=== PATIENT | female | born 1990 | race African-American/Black ===

== ENCOUNTER 2017-03-30 08:42 | Emergency (ER) | payer OTHER ==
[2017-03-30 08:47] VITALS: BP 134/84; BMI 44.4
--- NOTE | 2017-03-30 09:03 | DR.GENAD ---
HPI - PCP Primary Care Physician: nfd - HPI Comment HPI Comment: GETTING WORSE. NO FEVER. COUGH SPRODUCTIVE.CONGESTION AND HEADACHE ALSO. - Complaint/Symptoms Chief Complaint Doctors Comments: COUGH, CHEST PAIN TIMES 2 DAYS. Chief Complaint:: pt stated when she coughs her chest hurts - Nurses notes reviewed Nurses Notes Review: Yes - Source History Provided: Patient - Mode of Arrival Mode of Arrival: Ambulatory - Timing Onset of Chief Complaint: 03/28/17 Came on: Suddenly - Duration Duration: Constant Duration: Days - Severity Severity: Moderate PMH - PMH Past Medical History: No Past Medical History: Asthma Past Surgical History: No - Family History History of Family Medical Conditions: No Family Medical History: Diabetes Mellitus, [place] - Social History Does patient currently use any type of tobacco product: Yes Have you used tobacco products in the last 12 months: Yes Type of Tobacco Use: Cigarettes How many years tobacco product used: 15 Does any household member use tobacco: Yes Alcohol Use: Rarely Do you use any recreational Drugs:: No Lives With: Family Lives Where: Home - infectious screening In the last 2 months have you had wt loss of >10#?: NO Have you had fever, night sweats or hemotysis?: No Have you traveled outside the country in the last 6 months?: No Isolation: Standard ROS - Review of Systems Constitutional: Weakness, Fatigue. negative: Chills, Fever Eyes: negative: Eye Pain, Discharge ENTM: Nose Discharge, Nose Congestion, Throat Pain. negative: Ear Pain Respiratoy: Productive Cough, Short of Breath. negative: Wheezing, Hemoptysis Cardiovascular: Chest Pain Gastrointestinal/Abdominal: No Symptoms Reported Genitourinary: No Symptoms Reported Neurological: Headache, Weakness, Dizziness Musculoskeletal: Muscle Pain Integumentary: No Symptoms Reported Hematologic/Lymphatic: No Symptoms Reported Endocrine: No Symptoms Reported All Other Systems: Reviewed and Negative PE - Vital Signs Vitals: Temperature 98.7 F Pulse Rate 87 Respiratory Rate 16 Blood Pressure [Right Arm] 105/81 Blood Pressure 134/84 O2 Sat by Pulse Oximetry 99 - General Limitations: No Limitations General Appearance: Alert - Head Head Exam: Normal Inspection - Eyes Eye exam: Normal Appearance - ENT ENT Exam: Normal External Ear Exam External Ear Exam: Normal External Inspection TM/Canal Exam: Bilateral Normal Nose Exam: Sinus Tenderness Mouth Exam: Normal Inspection Throat Exam: Tonsillar Erythema. negative: Tonsillomegaly, Tonsillar Exudate - Neck Neck Exam: Trachea Midline - Chest Chest Inspection: Symmetric Chest Wall Rise - Respiratory Respiratory Exam: Normal Lung Sounds Bilat Respiratory Exam: Bilateral Clear to Auscultation - Cardiovascular Cardiovascular Exam: Regular Rate, Normal Rhythm, Normal Heart Sounds - Abdominal Exam Abdominal Exam: Normal Bowel Sounds, Soft. negative: Tenderness - Back Back Exam: Normal Inspection - Neurologic Neurological Exam: Alert - Psychiatric Psychiatric Exam: Normal Affect, Normal Mood - Skin Skin Exam: Normal Color MDM - Differential Diagnosis Differential Diagnosis: PNEUMONIA, BRONCHITIS, SINUSITIS Course - Treatment Treatment: SEE ORDERS. - Education/Counseling Education/Counseling: Patient, Education Educated On: Treatment, Diagnosis, Needs for Follow Up ROR - XRAY XRAY Interpreted by: Radiologist XRAY Findings: REPORT DISCUSS WITH PATIENT. - Diagnosis Discharge Problem: Bronchitis Sinusitis Qualifiers: Sinusitis location: unspecified location Chronicity: acute Recurrence: not specified as recurrent Qualified Code(s): J01.90 - Acute sinusitis, unspecified - Discharge Plan Disposition: HOME, SELF-CARE Condition: Stable Prescriptions: Amoxicillin [Amoxil 875 mg] 875 mg PO Q12H #20 tab Cetirizine HCl [Zyrtec Tab 10 mg] 10 mg PO DAILY #30 tab Ibuprofen [MOTRIN TAB 800 MG *] 800 mg PO Q8H PRN #20 tab PRN Reason: Pain/Inflammation - Follow ups/Referrals Follow ups/Referrals: [facility],None [Primary Care Provider] - 3 days - Instructions Instructions: Sinusitis, Adult, [id number], Acute Bronchitis, [id number], Chest Pain Observation Additional Instructions: RETURN TO ED IF WORSE.
--- NOTE | 2017-03-30 10:11 | RAD ---
History: Painful inspiration Study: PA and lateral chest Comparison: None Findings: The lungs are clear and the heart and mediastinum are unremarkable. There is no edema or ef fusion. No significant bony abnormality is demonstrated. Impression: Negative Reported By:
== END 2017-03-30 10:33 | disposition home or self-care (01) ==
LOC: ER 08:51
DX: J40 Bronchitis, not specified as acute or chronic (principal); J01.80 Other acute sinusitis
CPT/HCPCS: 71020; 93005; 93010; 99282